=== PATIENT | male | born 1995 | race Caucasian/White ===

== ENCOUNTER 2023-02-28 17:35 | Emergency (ER) | payer SELFPAY ==
[2023-02-28 17:38] VITALS: BP 132/89; PULSE 90; RESP 18; TEMP 36.6; O2SAT 100
--- NOTE | 2023-02-28 17:53 | ED.GENADULT ---
HPI - General Adult General Chief complaint: Unspecified Stated complaint: needs antidepressent med refill Time Seen by Provider: 02/28/23 17:53 Source: patient Mode of arrival: ambulatory Limitations: no limitations History of Present Illness HPI narrative: This is a 27-year-old male that presents to the emergency department for medication refill. Reports he takes Viibryd daily for depression. He ran out of this a couple of days ago. No current symptoms or other concerns. Review of Systems Review of Systems: CONSTITUTIONAL: Denies fever PSYCHIATRIC: Reports depression. All systems reviewed & are unremarkable except as noted in HPI and below PMFSH Past Medical History Medical History (Updated 02/28/23 @ 17:57 by Mona Benson PA-C) History of depression Social History Social History (Updated 02/28/23 @ 17:57 by Mona Benson PA-C) Substance use: never Exam Narrative: GENERAL: Well-appearing, well-nourished, and in no acute distress. HEAD: Normocephalic, atraumatic. EYES: EOMI. CHEST: Clear to auscultation. No respiratory distress. No wheezes rales or rhonchi HEART: Regular rate and rhythm. No murmur heard. Normal peripheral pulses. EXTREMITIES: Normal range of motion. No edema. SKIN: Warm, dry, no rash. NEURO: No focal deficits. Alert and oriented x3. PSYCH: Normal mood and affect Course Course Emergency Course: Patient instructed to have follow-up with a primary provider for further management Vital Signs Vital signs: Vital Signs Temperature 97.8 F 02/28/23 17:38 Pulse Rate 90 02/28/23 17:38 Respiratory Rate 18 02/28/23 17:38 Blood Pressure 132/89 02/28/23 17:38 Pulse Oximetry 100 02/28/23 17:38 Oxygen Delivery Room Air 02/28/23 17:38 Temperature 97.8 F 02/28/23 17:38 Pulse Rate 90 02/28/23 17:38 Respiratory Rate 18 02/28/23 17:38 Blood Pressure 132/89 02/28/23 17:38 Pulse Oximetry 100 02/28/23 17:38 Oxygen Delivery Room Air 02/28/23 17:38 Medical Decision Making [facility] Narrative Medical decision making narrative: Patient presents to the ER for medication refill. Ran out of his Viibryd a couple of days prior. No current symptoms or other concerns. Patient will be given a refill for this and follow up with primary provider. He was given warnings to return to the ER Vital Signs Vital Signs: Vital Signs Temperature 97.8 F 02/28/23 17:38 Pulse Rate 90 02/28/23 17:38 Respiratory Rate 18 02/28/23 17:38 Blood Pressure 132/89 02/28/23 17:38 Pulse Oximetry 100 02/28/23 17:38 Oxygen Delivery Room Air 02/28/23 17:38 Temperature 97.8 F 02/28/23 17:38 Pulse Rate 90 02/28/23 17:38 Respiratory Rate 18 02/28/23 17:38 Blood Pressure 132/89 02/28/23 17:38 Pulse Oximetry 100 02/28/23 17:38 Oxygen Delivery Room Air 02/28/23 17:38 Critical Care Time Critical Care Time Critical Care Time: No Discharge Plan Discharge Clinical Impression: Medication refill Patient Disposition: Home, Self-Care Condition: Stable Instructions: Medicine Refill (ED) Additional Instructions: Return to the emergency department if you experience fever, chest pain, shortness of breath, abdominal pain with nausea and vomiting, weakness, numbness, or any other symptoms that are concerning to you. Follow up with primary care doctor Prescriptions: New vilazodone [Viibryd] 40 mg tablet 40 mg PO DAILY 30 Days Qty: 30 0RF Rx Instructions: must administer with a meal/food Follow-up/Referrals: Balbir Ordaz MD [Physician] - PHYSICIAN,[employer] [Primary Care Provider] -
--- NOTE | 2023-02-28 18:09 | PC.NURSE ---
Pt states he is currently moved to [facility], has not set up a PMD, his Viibryd RX has and is requesting a refill until he establishes with a MD. Pt denies SI/HI
[2023-02-28 18:11] VITALS: BP 130/80; PULSE 92; RESP 18; TEMP 36.6; O2SAT 100
== END 2023-02-28 18:13 | disposition home or self-care (01) ==
PROVIDERS: Emergency Provider Physician Assistant
DX: F32.A Depression, unspecified (principal); Z76.0 Encounter for issue of repeat prescription
CPT/HCPCS: 99281